=== PATIENT | male | born 1980 | race African-American/Black ===

== ENCOUNTER 2022-08-02 13:06 | Emergency (ER) | payer SELFPAY ==
[~2022-08-02] VITALS: Ht 182.9 cm; Wt 91.0 kg
[2022-08-02] MEDS ORDERED: SODIUM CHLORIDE 0.9% 1,000 ML IV ONE ×2 (13:30→14:00)
[2022-08-02] MEDS ORDERED: LORAZEPAM 2MG/ML CPJ IV ONE (14:00)
[2022-08-02 14:20] LABS: BASOPHILS % 0.4 % (0.0-2.0); EOSINOPHILS % 0.3 % (0.0-5.0); HEMATOCRIT. 36.2 % (42.0-52.0); HEMOGLOBIN. 11.8 g/dL (14.0-18.0); LYMPHOCYTES % 12.1 % (20.0-50.0); MEAN CORPUSCULAR HEMOGLOBIN 25.9 pg (28.0-32.0); MEAN CORPUSCULAR VOLUME 79.3 fL (80.0-94.0); MEAN PLATELET VOLUME 8.1 fl (7.4-10.4); MONOCYTES % 6.6 % (2.0-8.0); NEUTROPHILS % 80.6 % (40.0-76.0); PLATELET 274 x1000/uL (130-400); RED BLOOD CELL COUNT 4.57 mill/uL (4.7-6.1); RED CELL DISTRIBUTION WIDTH 14.8 % (11.6-14.6)
[2022-08-02 14:22] LABS: CHLORIDE 101 mEq/L (98-107)
[2022-08-02 17:21] VITALS: BP 118/77
== END 2022-08-02 20:45 | disposition home or self-care (01) ==
LOC: ER 13:06
DX: F15.10 Other stimulant abuse, uncomplicated (principal); R07.89 Other chest pain
CPT/HCPCS: 36415; 71045; 80053; 82962; 84484; 85025; 93005; 96361; 96374; 99285; J2060; J7030